=== PATIENT | male | born 1975 | race Caucasian/White ===

== ENCOUNTER 2016-10-01 11:55 | Emergency (ER) | payer MEDICARE, MEDICAID ==
[2016-10-01 12:08] VITALS: BP 123/87
--- NOTE | 2016-10-01 12:39 | UC ---
Ear Complaint HPI - HPI Summary HPI Summary: 40 yo male with left otalgia and decreased hearing x a day or so mild URI symptoms - History of Current Complaint Chief Complaint: UCEar Stated Complaint: LEFT EAR PAIN Time Seen by Provider: 10/01/16 12:21 Hx Obtained From: Patient Onset/Duration: Gradual Onset, Lasting Hours Severity Initially: Moderate Severity Currently: Moderate Pain Intensity: 4 Pain Scale Used: 0-10 Numeric Associated Signs/Symptoms: Positive: Hearing Loss, URI Symptoms - Allergies/Home Medications Allergies/Adverse Reactions: Allergies Allergy/AdvReac Type Severity Reaction Status Date / Time Penicillins Allergy Severe Anaphylatic Verified 10/01/16 12:08 Shock Azithromycin [From Zithromax] Allergy Intermediate Rash Verified 10/01/16 12:08 Cephalexin [From Keflex] Allergy Mild itch Verified 10/01/16 12:08 Codeine Allergy Mild itch Verified 10/01/16 12:08 Hydrocodone [From Vicodin] Allergy Mild body is Verified 10/01/16 12:08 High feeling, itching Oxycodone [From Percocet] Allergy Itching Verified 10/01/16 12:08 Sulfamethoxazole Allergy Itching Verified 10/01/16 12:08 w/Trimethoprim [From Bactrim] Vancomycin Allergy Rash Verified 10/01/16 12:08 tessalon perle Allergy Mild Rash Uncoded 10/01/16 12:08 seasonal Allergy Coughing Uncoded 10/01/16 12:08 Home Medications: Home Medications Dextromethorphan-Guaifenesin [Mucinex Dm Maximum Streng 60-1200 mg] 2 tab PO Q12H PRN 10/01/16 [History Confirmed 10/01/16] PMH/Surg Hx/FS Hx/Imm Hx Previously Healthy: Yes - Surgical History Surgical History: Yes Surgery Procedure, Year, and Place: R knee ACL, hernia, L shoulder, R shoulder, appy, 3 lower back surgeries, cervical x 3 - Family History Known Family History: Positive: Hypertension, Diabetes, Respiratory Disease, Other - father with colorectal, lung and pancreatic cancer - Social History Alcohol Use: Occasionally Substance Use Type: None Smoking Status (MU): Heavy Every Day Tobacco Smoker Type: Cigarettes Amount Used/How Often: 1/2 pack daily Length of Time of Smoking/Using Tobacco: 30 years Have You Smoked in the Last Year: Yes - Immunization History Most Recent Tetanus Shot: 01/01/15 Review of Systems Constitutional: Negative Skin: Negative Eyes: Negative ENT: Ear Ache Respiratory: Cough Cardiovascular: Negative Gastrointestinal: Negative Genitourinary: Negative Motor: Negative Neurovascular: Negative Musculoskeletal: Negative Neurological: Negative Psychological: Negative All Other Systems Reviewed And Are Negative: Yes Physical Exam Triage Information Reviewed: Yes Appearance: Well-Appearing, No Pain Distress, Well-Nourished Vital Signs: Initial Vital Signs Temp 98.3 F 10/01/16 12:02 Pulse 85 10/01/16 12:02 Resp 18 10/01/16 12:02 BP 123/87 10/01/16 12:02 Eyes: Positive: Conjunctiva Clear ENT: Positive: TM red - left , very retracted. Negative: Nasal congestion, Nasal drainage, TMs normal, Tonsillar swelling, Tonsillar exudate, Trismus, Muffled/hoarse voice Neck: Positive: Supple, Nontender Respiratory: Positive: Lungs clear, Normal breath sounds, No respiratory distress Cardiovascular: Positive: RRR, No Murmur Musculoskeletal: Positive: ROM Intact, No Edema Neurological: Positive: Alert Psychological Exam: Normal Skin Exam: Normal Ear Complaint Course/Dx - Differential Dx/Diagnosis Provider Diagnoses: left otitis media Discharge - Discharge Plan Condition: Stable Disposition: HOME Prescriptions: DOXYcycline CAP(*) [DOXYcycline 100MG CAP(*)] 100 mg PO BID #20 cap Prednisone [Deltasone] 20 - 40 mg PO DAILY #10 tab Patient Education Materials: Otitis Media (ED) Referrals: Josephine Diggs MD [Primary Care Provider] - 2 Weeks (if hearing not back to normal)
== END 2016-10-01 12:40 | disposition home or self-care (01) ==
LOC: UCCORT 11:55
DX: H66.92 Otitis media, unspecified, left ear (principal); Z88.1 Allergy status to other antibiotic agents; Z88.5 Allergy status to narcotic agent; Z88.0 Allergy status to penicillin; Z88.2 Allergy status to sulfonamides; F17.210 Nicotine dependence, cigarettes, uncomplicated
CPT/HCPCS: 99212; G0463

== ENCOUNTER 2017-02-18 07:05 | Emergency (ER) | payer MEDICARE, MEDICAID ==
[2017-02-18 07:32] VITALS: BP 128/82
--- NOTE | 2017-02-18 07:45 | UC ---
Respiratory Complaint HPI - HPI Summary HPI Summary: Cough and congestion for about two days. There is some chills but no known fever. No hemoptysis. No sob. - History of Current Complaint Chief Complaint: UCRespiratory Stated Complaint: COUGH FEVER Time Seen by Provider: 02/18/17 07:15 Hx Obtained From: Patient Onset/Duration: Gradual Onset, Lasting Days Timing: Constant Severity Initially: Moderate Severity Currently: Moderate Character: Cough: Nonproductive Aggravating Factors: Deep Breaths, Recumbent Position Alleviating Factors: OTC Meds Associated Signs And Symptoms: Positive: Chills, URI, Nasal Congestion. Negative: Dyspnea, Fever, Wheezing, Hemoptysis, Calf Pain, Calf Swelling, Edema , Sinus Discomfort - Allergies/Home Medications Allergies/Adverse Reactions: Allergies Allergy/AdvReac Type Severity Reaction Status Date / Time Penicillins Allergy Severe Anaphylatic Verified 02/18/17 07:23 Shock Azithromycin [From Zithromax] Allergy Intermediate Rash Verified 02/18/17 07:23 Cephalexin [From Keflex] Allergy Mild itch Verified 02/18/17 07:23 Codeine Allergy Mild itch Verified 02/18/17 07:23 Hydrocodone [From Vicodin] Allergy Mild body is Verified 02/18/17 07:23 High feeling, itching Oxycodone [From Percocet] Allergy Itching Verified 02/18/17 07:23 Sulfamethoxazole Allergy Itching Verified 02/18/17 07:23 w/Trimethoprim [From Bactrim] Vancomycin Allergy Rash Verified 02/18/17 07:23 tessalon perle Allergy Mild Rash Uncoded 02/18/17 07:23 seasonal Allergy Coughing Uncoded 02/18/17 07:23 Home Medications: Home Medications Meloxicam [Mobic] 15 mg PO DAILY 02/18/17 [History Confirmed 02/18/17] guaiFENesin ER TAB [Mucinex*] 600 mg PO BID PRN 02/18/17 [History Confirmed ] PMH/Surg Hx/FS Hx/Imm Hx Previously Healthy: No - asthma. smoker. - Surgical History Surgical History: Yes Surgery Procedure, Year, and Place: R knee ACL, hernia, L shoulder, R shoulder, appy, 3 lower back surgeries, cervical x 3 - Family History Known Family History: Positive: Hypertension, Diabetes, Respiratory Disease, Other - father with colorectal, lung and pancreatic cancer - Social History Alcohol Use: Rare Substance Use Type: None Smoking Status (MU): Heavy Every Day Tobacco Smoker Type: Cigarettes Amount Used/How Often: 4 CIGS PER DAY Length of Time of Smoking/Using Tobacco: 30 years Have You Smoked in the Last Year: Yes - Immunization History Most Recent Tetanus Shot: 01/01/15 Review of Systems ENT: Sore Throat Respiratory: Cough All Other Systems Reviewed And Are Negative: Yes Physical Exam Triage Information Reviewed: Yes Appearance: Well-Appearing, No Pain Distress, Well-Nourished Vital Signs: Initial Vital Signs Temp 99.1 F 02/18/17 07:25 Pulse 97 02/18/17 07:25 Resp 18 02/18/17 07:25 BP 128/82 02/18/17 07:25 Pulse Ox 98 02/18/17 07:25 Vital Signs Reviewed: Yes Eyes: Positive: Conjunctiva Clear ENT: Positive: Pharynx normal, TMs normal. Negative: Nasal congestion, Nasal drainage, TM bulging, TM dull, TM red, Tonsillar swelling, Tonsillar exudate, Trismus, Muffled voice, Hoarse voice, Sinus tenderness, Uvula midline Neck: Positive: Supple, Nontender, No Lymphadenopathy Respiratory: Positive: Lungs clear, Normal breath sounds, No respiratory distress, No accessory muscle use. Negative: Respiratory distress, Decreased breath sounds, Accessory muscle use, Crackles, Rhonchi, Stridor, Wheezing Cardiovascular: Positive: No Murmur, Pulses Normal, Brisk Capillary Refill Abdomen Description: Positive: Nontender, No Organomegaly. Negative: Distended , Guarding Musculoskeletal: Positive: ROM Intact, No Edema Neurological: Positive: Alert, Muscle Tone Normal. Negative: Fatigued Psychological: Positive: Age Appropriate Behavior Skin: Positive: rashes UC Diagnostic Evaluation - Laboratory O2 Sat by Pulse Oximetry: 98 Respiratory Course/Dx - Differential Dx/Diagnosis Provider Diagnoses: uri Discharge - Discharge Plan Condition: Good Disposition: HOME Patient Education Materials: Upper Respiratory Infection (ED) Referrals: Josephine Diggs MD [Primary Care Provider] - If Needed
== END 2017-02-18 07:59 | disposition home or self-care (01) ==
LOC: UCCORT 07:05
DX: J06.9 Acute upper respiratory infection, unspecified (principal); F17.210 Nicotine dependence, cigarettes, uncomplicated; Z88.3 Allergy status to other anti-infective agents; Z88.5 Allergy status to narcotic agent; Z88.0 Allergy status to penicillin
CPT/HCPCS: 36415; 86703; 99211; G0463

== ENCOUNTER 2017-06-19 09:12 | Emergency (ER) | payer MEDICARE, MEDICAID ==
[2017-06-19 09:38] VITALS: BP 135/78
--- NOTE | 2017-06-19 10:21 | ED ---
Respiratory - HPI Summary HPI Summary: 41 yr old male with the complaint of coughing. Onset of symptoms four days ago. Symptoms include cough, runny nose, scratchy throat. Denies SOB. Denies headache. - History of Current Complaint Chief Complaint: UCGeneralIllness Stated Complaint: CHEST CONGESTION Time Seen by Provider: 06/19/17 10:08 Pain Intensity: 7 - Allergy/Home Medications Allergies/Adverse Reactions: Allergies Allergy/AdvReac Type Severity Reaction Status Date / Time azithromycin Allergy Rash Verified 06/19/17 09:42 cephalexin Allergy Itching Verified 06/19/17 09:42 codeine Allergy Itching Verified 06/19/17 09:42 hydrocodone Allergy Itching Verified 06/19/17 09:42 oxycodone Allergy Itching Verified 06/19/17 09:42 Penicillins Allergy Anaphylatic Verified 06/19/17 09:42 Shock sulfamethoxazole Allergy Itching Verified 06/19/17 09:42 trimethoprim Allergy Itching Verified 06/19/17 09:42 vancomycin Allergy Rash Verified 06/19/17 09:42 tessalon perle Allergy Mild Rash Uncoded 02/18/17 07:23 seasonal Allergy Coughing Uncoded 02/18/17 07:23 Home Medications: Home Medications Ibuprofen TAB* [Motrin TAB* 600 MG] 600 mg PO Q6H PRN 06/19/17 [History Confirmed 06/19/17] Silodosin(NF) [Rapaflo(NF)] 4 mg PO DAILY PRN 06/19/17 [History Confirmed ] PMH/Surg Hx/FS Hx/Imm Hx Endocrine/Hematology History: Denies: Hx Diabetes, Hx Thyroid Disease Respiratory History: Reports: Hx Asthma - Surgical History Surgery Procedure, Year, and Place: R knee ACL, hernia, L shoulder, R shoulder, appy, 3 lower back surgeries, cervical x 3 Infectious Disease History: No Infectious Disease History: Denies: Hx Clostridium Difficile, Hx Hepatitis, Hx Human Immunodeficiency Virus (HIV), Hx of Known/Suspected MRSA, Hx Shingles, Hx Tuberculosis, Hx Known/ Suspected VRE, Hx Known/Suspected VRSA, History Other Infectious Disease, Traveled Outside the [place] in Last 30 Days - Family History Known Family History: Positive: Hypertension, Diabetes, Respiratory Disease, Other - father with colorectal, lung and pancreatic cancer - Social History Occupation: Disabled Lives: With Family Alcohol Use: Rare Substance Use Type: Reports: None Smoking Status (MU): Light Every Day Tobacco Smoker Type: Cigarettes Amount Used/How Often: 4 CIGS PER DAY Length of Time of Smoking/Using Tobacco: 30 years Have You Smoked in the Last Year: Yes Review of Systems Constitutional: Negative Positive: Sore Throat, Nasal Discharge Positive: Cough All Other Systems Reviewed And Are Negative: Yes Physical Exam Triage Information Reviewed: Yes Vital Signs On Initial Exam: Initial Vitals Temp Pulse Resp BP Pulse Ox 99 F 83 18 135/78 97 06/19/17 09:32 06/19/17 09:32 06/19/17 09:32 06/19/17 09:32 06/19/17 09:32 Vital Signs Reviewed: Yes Appearance: Positive: Well-Appearing, No Pain Distress Skin: Positive: Warm, Skin Color Reflects Adequate Perfusion Head/Face: Positive: Normal Head/Face Inspection Eyes: Positive: EOMI ENT: Positive: Normal ENT inspection, Pharyngeal erythema, Nasal congestion, TMs normal Neck: Positive: Nontender Respiratory/Lung Sounds: Positive: Clear to Auscultation, Breath Sounds Present Cardiovascular: Positive: RRR. Negative: Murmur Abdomen Description: Positive: Nontender Musculoskeletal: Positive: Strength/ROM Intact Neurological: Positive: Sensory/Motor Intact, Alert, Oriented to Person Place, Time, CN Intact II-III, Speech Normal - Aaron Coma Scale Best Eye Response: 4 - Spontaneous Best Motor Response: 6 - Obeys Commands Best Verbal Response: 5 - Oriented Coma Scale Total: 15 Diagnostics - Vital Signs Vital Signs Temp Pulse Resp BP Pulse Ox 06/19/17 09:32 99 F 83 18 135/78 97 - Laboratory Lab Statement: Any lab studies that have been ordered have been reviewed, and results considered in the medical decision making process. Disposition - Course Course Of Treatment: 41 yr old male with URI symptoms. Plan DC home good condition. FU with PMD. - Diagnoses Provider Diagnoses: Upper respiratory infection Discharge - Sign-Out/Discharge Documenting (check all that apply): Discharge/Admit/Transfer - Discharge Plan Condition: Good Disposition: HOME Patient Education Materials: Upper Respiratory Infection (ED) Referrals: Josephine Diggs MD [Primary Care Provider] - 2 Days - Billing Disposition and Condition Condition: GOOD Disposition: HOME
== END 2017-06-19 10:25 | disposition home or self-care (01) ==
LOC: UCCORT 09:12
DX: J06.9 Acute upper respiratory infection, unspecified (principal); F17.210 Nicotine dependence, cigarettes, uncomplicated; Z88.3 Allergy status to other anti-infective agents; Z88.5 Allergy status to narcotic agent; Z88.0 Allergy status to penicillin; Z88.2 Allergy status to sulfonamides
CPT/HCPCS: 99211; G0463

== ENCOUNTER 2017-10-20 20:05 | Emergency (ER) | payer MEDICARE, MEDICAID ==
--- OUTSIDE RECORDS SUMMARY | 2017-10-20 20:14 | XMS REPORT ---
:1975 External Reference #:[id number] Author Organization [employer] Address [address] [place] [address] [place] [address] Phone [phone] Care Team Providers Name Role Phone Patient's Choice Primary Care Physician Unavailable Payers Type Date Identification Numbers Payment Provider Subscriber Medicare Primary Policy Number: [id number] Medicare Edmond Short JR PayID: [id number] [address] [place] [address] [facility] Part B Policy Number: [id number] Medicaid Edmond Short JR Group Name: 1 1 [address] PayID: [id number] [place] [address] Problems Description No Information Family History Date Family Member(s) Problem(s) Comments General Cancer General Diabetes General Heart Disease General Hypertension Social History Type Date Description Comments Lives With Spouse Occupation Disabled ETOH Use Denies alcohol use Smoking Patient is a current smoker, smokes every day Allergies, Adverse Reactions, Alerts Date Description Reaction Status Severity Comments 09/21/2017 Ivon Thomas active 09/21/2017 Penicillin active Medications Medication Date Status Form Strength Qnty SIG Indications Ordering Provider No Active 09/21/2017 Active Unknown Medications Vital Signs Date Vital Result Comment 09/21/2017 Height 69 inches 5'9" Weight 197.00 lb Heart Rate 76 /min Respiratory Rate 18 /min Body Temperature 96.4 F Pain Level 9 BMI (Body Mass Index) 29.1 kg/m2 Results Description No Information Procedures Date CPT Code Description Status 09/21/2017 70371 Injection Single Tendon Origin/Insertion Completed Encounters Type Date Location Provider CPT E/M Dx Office Visit 09/21/2017 [facility] Briggs, [address] M77.11 8:30a [facility] G56.01 Plan of Care Future Appointment(s):10/16/2017 8:45 am - Be[facility] Briggs M.D. at [facility]/21/2017 - Becca Briggs M.D.M77.11 Lateral epicondylitis , right elbowFollow up:Follow up:G56.01 Carpal tunnel syndrome, right upper limbNew Orders:EMG w/Nerve Conduct Study, UpperFollow up:Follow up: after testing is completed
--- OUTSIDE RECORDS SUMMARY | 2017-10-20 20:14 | XMS REPORT ---
:1975 External Reference #:[id number] Author Organization [employer] Address [address] [place] [address] [place] [address] Phone [phone] Care Team Providers Name Role Phone Flores Sheikh FNP Primary Care Physician Unavailable Payers Type Date Identification Numbers Payment Provider Subscriber Medicare Primary Policy Number: [id number] Medicare Edmond Short JR PayID: [id number] [address] [place] [address] [facility] Part B Policy Number: [id number] Medicaid Edmond Short JR Group Name: 1 1 [address] PayID: [id number] [place] [address] Problems Description No Information Family History Date [...] Provider No Active 09/21/2017 Active Unknown Medications Medications Administered in Office Medication Date Status Form Strength Qnty SIG Indications Ordering Provider Depomedrol Administered Injection Becca 40MG Nick Briggs M.D. Vital Signs Date Vital Result Comment 10/16/2017 Height 69 inches 5'9" Heart Rate 68 /min BP Systolic 118 mmHg BP Diastolic 76 mmHg Respiratory Rate 16 /min Body Temperature 98.0 F Pain Level 6 09/21/2017 Height 69 inches 5'9" Weight 197.00 lb Heart Rate 76 /min Respiratory Rate 18 /min Body Temperature 96.4 F Pain Level 9 BMI (Body Mass Index) 29.1 kg/m2 Results Description No Information Procedures Date CPT Code Description Status 09/21/2017 93733 Injection Single Tendon Origin/Insertion Completed Encounters Type Date Location Provider CPT E/M Dx Office Visit 09/21/2017 [facility] Be[facility] Briggs, [address] M77.11 8:30a [facility] G56.01 Plan of Care 10/16/2017 - Taty Smith RPA-[id number] Lateral epicondylitis, right elbowNew Therapy:Physical TherapyFollow up:Follow up: As needed
[2017-10-20 20:15] VITALS: BP 131/80
[2017-10-20] MEDS ORDERED: Cyclobenzaprine TAB* 10 MG PO ONE ×2 (20:29→20:36)
--- NOTE | 2017-10-20 20:37 | ED ---
Neck Pain - HPI Summary HPI Summary: 42 yr old male with left sided trapezius and lateral left neck pain. Onset after he replaced the starter on his truck this morning at 1130 am. He was under the truck with arms extended working. he finished, got up off the concrete, and gradually felt tightening and spasm in the left trapezius and lateral posterior left neck muscles. No trauma or falls. No numbness or weakness. No drooling, change in voice. He has had three cervical fusions. His surgeon is in [place]. - History of Current Complaint Chief Complaint: UCBackPain Stated Complaint: NECK/LEFT SHOULDER PAIN Time Seen by Provider: 10/20/17 20:19 Pain Intensity: 10 - Allergies/Home Medications Allergies/Adverse Reactions: Allergies Allergy/AdvReac Type Severity Reaction Status Date / Time azithromycin Allergy Rash Verified 10/20/17 20:15 cephalexin Allergy Itching Verified 10/20/17 20:15 codeine Allergy Itching Verified 10/20/17 20:15 hydrocodone Allergy Itching Verified 10/20/17 20:15 oxycodone Allergy Itching Verified 10/20/17 20:15 Penicillins Allergy Anaphylatic Verified 10/20/17 20:15 Shock sulfamethoxazole Allergy Itching Verified 10/20/17 20:15 trimethoprim Allergy Itching Verified 10/20/17 20:15 vancomycin Allergy Rash Verified 10/20/17 20:15 tessalon perle Allergy Mild Rash Uncoded 10/20/17 20:15 seasonal Allergy Coughing Uncoded 10/20/17 20:15 Home Medications: Home Medications Naproxen TAB* [Naprosyn 250 mg TAB*] 250 mg PO Q8H PRN 10/20/17 [History Confirmed 10/20/17] PMH/Surg Hx/FS Hx/Imm Hx Endocrine/Hematology History: Denies: Hx Diabetes, Hx Thyroid Disease Respiratory History: Reports: Hx Asthma - Surgical History Surgery Procedure, Year, and Place: R knee ACL, hernia, L shoulder, R shoulder, appy, 3 lower back surgeries, cervical x 3 Infectious Disease History: No Infectious Disease History: Denies: Hx Clostridium Difficile, Hx Hepatitis, Hx Human Immunodeficiency Virus (HIV), Hx of Known/Suspected MRSA, Hx Shingles, Hx Tuberculosis, Hx Known/ Suspected VRE, Hx Known/Suspected VRSA, History Other Infectious Disease, Traveled Outside the [place] in Last 30 Days - Family History Known Family History: Positive: Hypertension, Diabetes, Respiratory Disease, Other - father with colorectal, lung and pancreatic cancer - Social History Occupation: Disabled Lives: With Family Alcohol Use: Rare Substance Use Type: Reports: None Smoking Status (MU): Light Every Day Tobacco Smoker Type: Cigarettes Amount Used/How Often: 1/2 pk PER DAY Length of Time of Smoking/Using Tobacco: 34 years Have You Smoked in the Last Year: Yes Review of Systems Constitutional: Negative Positive: Other - posterior left neck pain and trapezius pain. Negative: Weakness, Paresthesia, Numbness All Other Systems Reviewed And Are Negative: Yes Physical Exam Triage Information Reviewed: Yes Vital Signs On Initial Exam: Initial Vitals Temp Pulse Resp BP Pulse Ox 98.3 F 80 16 131/80 97 10/20/17 20:08 10/20/17 20:08 10/20/17 20:08 10/20/17 20:08 10/20/17 20:08 Vital Signs Reviewed: Yes Appearance: Positive: Well-Appearing, No Pain Distress Skin: Positive: Warm, Skin Color Reflects Adequate Perfusion Head/Face: Positive: Normal Head/Face Inspection Eyes: Positive: EOMI ENT: Positive: Normal ENT inspection, Pharynx normal, TMs normal, Uvula midline. Negative: Tonsillar swelling, Tonsillar exudate, Hoarse voice Neck: Positive: Supple, Nontender - in midline, Other: - his left paraspinal muscles and left trapezius muscles are tender to palpation. No STS. Cardiovascular: Positive: RRR. Negative: Murmur Abdomen Description: Negative: Distended Musculoskeletal: Positive: Strength/ROM Intact Neurological: Positive: Sensory/Motor Intact, Alert, Oriented to Person Place, Time, CN Intact II-III Psychiatric: Positive: Normal Diagnostics - Vital Signs Vital Signs Temp Pulse Resp BP Pulse Ox 10/20/17 20:08 98.3 F 80 16 131/80 97 - Laboratory Lab Statement: Any lab studies that have been ordered have been reviewed, and results considered in the medical decision making process. Neck Course/Dx - Course Course Of Treatment: 42 yr old with muscle strain, torticollis. [facility] FU with his neurosurgeon for further evaluation, to er for worsening symptoms. - Diagnoses Provider Diagnoses: Torticollis, Strain of trapezius muscle Discharge - Sign-Out/Discharge Documenting (check all that apply): Patient Departure All imaging exams completed and their final reports reviewed: No Studies - Discharge Plan Condition: Good Disposition: HOME Prescriptions: Cyclobenzaprine TAB* [Flexeril 10 MG TAB*] 10 mg PO BID PRN #10 tab PRN Reason: Spasms Patient Education Materials: Spasmodic Torticollis (ED), Neck Pain (ED) Referrals: Josephine Diggs MD [Medical Doctor] - 2 Days Additional Instructions: Be sure to follow up with your neurosurgeon Dr Cochran. For any numbness, weakness in the arms or worse pain please go to the Emergency Room for further evaluation. - Billing Disposition and Condition Condition: GOOD Disposition: Home
== END 2017-10-20 20:45 | disposition home or self-care (01) ==
LOC: UCCORT 20:05
DX: S46.812A Strain of other muscles, fascia and tendons at shoulder and upper arm level, left arm, initial encounter (principal); J45.909 Unspecified asthma, uncomplicated; F17.210 Nicotine dependence, cigarettes, uncomplicated; Z88.1 Allergy status to other antibiotic agents; Z88.5 Allergy status to narcotic agent; Z88.0 Allergy status to penicillin; Z88.2 Allergy status to sulfonamides; Z91.09 Other allergy status, other than to drugs and biological substances; Z88.8 Allergy status to other drugs, medicaments and biological substances; X50.1XXA Overexertion from prolonged static or awkward postures, initial encounter; Y92.9 Unspecified place or not applicable
CPT/HCPCS: 99212; A9270-GY; G0463

== ENCOUNTER 2017-12-22 10:06 | Day surgery (SDC) | payer MEDICARE, MEDICAID ==
--- NOTE | 2017-12-07 09:43 | HP ---
AMENDED REPORT NOW INCLUDES DESIGNATED COSIGNER PREOPERATIVE HISTORY AND PHYSICAL EXAM: DATE OF ADMISSION/SURGERY: 12/22/17 DATE OF OFFICE VISIT/ENCOUNTER: 12/06/17 ATTENDING SURGEON: Becca Briggs MD * (DICTATED BY KARLY HENSON) PROCEDURE: Right elbow lateral release. CHIEF COMPLAINT: Right elbow pain. HISTORY OF PRESENT ILLNESS: This is a 42-year-old male who has had ongoing problems with lateral epicondylitis for close to a year now. He has failed conservative treatment including 2 cortisone injections, counterforce bracing, and physical therapy. He is interested in pursuing surgical intervention for this problem. PAST MEDICAL HISTORY: 1. Asthma. 2. Hypercholesterolemia. 3. Low back pain. 4. History of kidney stones. 5. Anxiety/depression/PTSD. 6. GERD. PAST SURGICAL HISTORY: 1. Appendectomy as an infant. 2. Left shoulder. 3. Right shoulder. 4. C-spine fusion x3. 5. Lumbar fusion with revision. 6. Right knee ACL reconstructions. No reported anesthesia problems. CURRENT MEDICATIONS: Naprosyn p.r.n. ALLERGIES: PENICILLIN causes anaphylaxis, TESSALON PERLES caused hives, VICODIN and PERCOCET cause confusion; KEFLEX, ZITHROMAX, CODEINE, DAPTOMYCIN, and VANCOMYCIN, reaction unknown. FAMILY MEDICAL HISTORY: Cancer, diabetes, heart disease, hypertension. SOCIAL HISTORY: The patient is disabled. He is a current smoker. He smokes half a pack to 1 pack per day, has done so for the past 34 years. He denies recreational drug use. He has not drunk alcohol since February 2017. He reports some history of alcohol abuse. REVIEW OF SYSTEMS: Negative for general, cephalic, cardiovascular, respiratory , GI, . Musculoskeletal: Positive for current complaint and chronic back pain. Negative for integumentary, endocrine, neurologic, and hematologic symptoms. Infectious Disease: Negative for history of MRSA, hepatitis C, HIV. PHYSICAL EXAMINATION GENERAL: Well-developed, well-nourished, 42-year-old male, in no acute distress. VITAL SIGNS: Height 5 feet 9 inches, weight 197 pounds. Blood pressure 134/82 , pulse rate 84. HEENT: Normocephalic, atraumatic. Pupils are equal, round, and reactive to light and accommodation. Extraocular movements are intact. Throat is clear. NECK: Supple. No palpable lymph nodes. PULMONARY: Lungs are clear to auscultation bilaterally. No wheezes, rales, or rhonchi. CARDIOVASCULAR: Regular rate and rhythm. S1, S2. No murmurs, rubs, or gallops. No edema. ABDOMEN: Positive bowel sounds, soft, nontender. NEUROLOGICAL: Alert and oriented x3. Cranial nerves II through XII are intact. Sensation is intact to light touch. MUSCULOSKELETAL: On exam of his right elbow, there is no visible swelling of the lateral epicondyle but there is exquisite tenderness there and down into forearm musculature on the dorsal aspect. He has pain resisting wrist extension. He lacked few degrees of elbow motion in both flexion and extension with pain in end ranges. IMPRESSION: Right lateral epicondylitis. PLAN: The patient is scheduled to undergo a right elbow lateral release with Dr. Briggs on 12/22/17. He will return to the office 10 days postop for followup and suture removal. The patient has tramadol at home that he will use along with over- the-counter medications for postoperative pain management. I will refill his tramadol if needed. KARLY HENSON [id number]/[facility] #: [id number] [place]
[~2017-12-22 10:06] MED LIST: Buffered Lidocaine 0.9% SYRIN* 5 ML/SYR SYRINGE INTRADERM ONE; Famotidine IV* 10 MG/ML 2 ML (20 mg) IV ONE; ROPIVACAINE 5 MG/ML 30 ML BTL (0.5%) ONE
[2017-12-22] MEDS ORDERED: Famotidine IV* 10 MG/ML 2 ML (20 mg) ONE (10:33)
[2017-12-22] MEDS ORDERED: Midazolam* 1 MG/ML 5 ML VIAL (5 MG) ONE (12:04)
[2017-12-22] MEDS ORDERED: fentaNYL* 50 MCG/ML 2 ML VIAL (100 MCG VIAL) ONE (12:04)
[2017-12-22] MEDS ORDERED: Acetaminophen TAB* 325 MG PO PRN (12:38)
[2017-12-22] MEDS ORDERED: DiMENhydriNATE IV* 50 MG/ML VIAL IV PUSH PRN (12:38)
[2017-12-22] MEDS ORDERED: Propofol* 10 MG/ML 20 ML BTL IV PUSH ONE (12:57)
[2017-12-22] MEDS ORDERED: Dexamethasone IV* 4 MG/ML 1 ML (4 MG) ONE (12:57)
[2017-12-22] MEDS ORDERED: Ketorolac INJ* 30 MG/ML 1 ML VIAL ONE (12:57)
[2017-12-22] MEDS ORDERED: Lidocaine 2% PF * 5 ML VIAL ONE (12:57)
[2017-12-22] MEDS ORDERED: KETAMINE HCL* 50 MG/ML 10 ML VIAL ONE (12:57)
[2017-12-22] MEDS ORDERED: Ondansetron INJ* 2 MG/ML VIAL ONE (12:57)
[2017-12-22 14:09] VITALS: BP 117/75
--- NOTE | 2017-12-23 03:03 | OP ---
DATE OF OPERATION: 12/22/17 [facility] DATE OF : 77 SURGEON: Becca Briggs MD [employer]UST[employer]S BROKER: KARLY Torres. ANESTHESIA: General. PRE-OP DIAGNOSIS: Lateral epicondylitis on the right. POST-OP DIAGNOSIS: Lateral epicondylitis on the right. OPERATIVE PROCEDURE: Right lateral release of the elbow. INDICATION FOR PROCEDURE: Edmond is a 42-year-old man who has lateral epicondylitis for several months. He has failed conservative treatment including cortisone injection. He presents for right elbow lateral release. ESTIMATED BLOOD LOSS: Zero. TOURNIQUET TIME: Approximately 30 minutes. DESCRIPTION OF PROCEDURE: The patient was brought to the operating room and was given a general anesthetic and placed in the supine position on the operating table with a tourniquet around his right upper arm. Skin of his right upper extremity was prepped and draped in the usual sterile fashion. The upper extremity was exsanguinated and the tourniquet elevated to 250 mmHg. A longitudinal incision was made centered at the lateral epicondyle. We dissected through the subcutaneous tissue down to the extensor origin. A distally based U-shaped flap was created off the extensor origin and was subperiosteally dissected off the lateral epicondyle. There was abundant underlying degenerated tissue and this was debrided with the rongeur as was the lateral epicondyle bone. The wound was copiously irrigated with saline. The extensor origin was repaired in length and fashion with #1 Vicryl suture and then the subcutaneous tissue was reapproximated with 3-0 Vicryl suture and the skin with nader. The wound was dressed with Xeroform, 4x4, Webril, and an Lance wrap. The patient tolerated the procedure well and was brought to the recovery room in good condition. [id number]/[facility] #: [id number] [facility] HOSPITALMeera
== END 2017-12-22 14:10 | disposition home or self-care (01) ==
LOC: OREAST 10:06
PROVIDERS: ATTEND Orthopaedic Surgery
DX: M77.11 Lateral epicondylitis, right elbow (principal); J45.909 Unspecified asthma, uncomplicated; E78.00 Pure hypercholesterolemia, unspecified; F41.8 Other specified anxiety disorders; F43.10 Post-traumatic stress disorder, unspecified; K21.9 Gastro-esophageal reflux disease without esophagitis
CPT/HCPCS: 88304; J1100; J1885; J2250; J2405; J2704; J2795; J3010